=== PATIENT | male | born 1940 | race Caucasian/White ===

== ENCOUNTER → 2016-08-27 | Outpatient (CLI) | payer MEDICARE ==
[~2016-08-27] MED LIST: GLUCTAB18 PO; LISI-725 PO; OMEGCAP2 PO; PRLSR20 PO
[2016-08-27 12:11] LABS: BASO % 1.3 %; BASO ABS # 0.07 K/uL (0-0.2); COMPLETE YES; EOS % 3.1 %; IG% 0.2 %; LYMPH % 33.3 %; LYMPH ABS # 1.85 K/uL (1.2-3.4); MEAN CELL VOLUME 95.7 fL (80-100); MEAN CORPUSCULAR HGB CONC 33.4 g/dl (32-36); MEAN PLATELET VOLUME 9.6 fL (7.4-10.4); MONO % 6.8 %; NEUT % 55.3 %; PLATELET COUNT 188 K/uL (130-400); RED BLOOD COUNT 3.97 M/uL (4.7-6.1); URINE APPEARANCE CLEAR (CLEAR); URINE BILIRUBIN NEG (NEG); URINE COLOR YELLOW; URINE EPITHELIAL CELL AUTO 0-5 /lpf (0-5); URINE NITRITE NEG (NEG); URINE PH 5.5 (4.5-7.5); URINE SPECIFIC GRAVITY 1.013 (1.000-1.030); UROBILINOGEN NEG (NEG); WHITE BLOOD COUNT 5.55 K/uL (4.8-10.8); ZZUR CULT IF INDIC CLEAN CATCH NO
[2016-08-27 12:18] LABS: MANUAL MICROSCOPIC REQUIRED? NO; REVIEW REQ? NO
[2016-08-27 12:20] LABS: BLOOD UREA NITROGEN 21 mg/dl (7-18); BUN/CREATININE RATIO 11.7 (10-20); CARBON DIOXIDE 29 mmol/L (21-32); CHLORIDE 107 mmol/L (98-107); GLUCOSE 89 mg/dl (70-99); MAGNESIUM 1.9 mg/dl (1.8-2.4); PHOSPHORUS 2.3 mg/dl (2.5-4.9); SODIUM 142 mmol/L (136-145)
[2016-08-27 12:26] LABS: CALCIUM 9.6 mg/dl (8.5-10.1)
[2016-08-27 12:36] LABS: URINE PROTIEN/CREAT RATIO 0.1 (0-0.2); URINE TOTAL PROTEIN 5.9 mg/dl (0-11.9)
== END | disposition home or self-care (01) ==
LOC: C.LABBFT 07:49
PROVIDERS: ATTEND Internal Medicine
DX: N18.3 Chronic kidney disease, stage 3 (moderate) (principal)

== ENCOUNTER → 2016-11-18 | Outpatient (CLI) | payer MEDICARE ==
[2016-11-18 12:31] LABS: URIC ACID 5.8 mg/dl (2.6-7.2)
[2016-11-18 12:32] LABS: ESTIMATED AVERAGE GLUCOSE 117 mg/dl; HA1C FLAG Normal (Normal)
== END | disposition home or self-care (01) ==
LOC: C.LABBFT 09:42
PROVIDERS: ATTEND Internal Medicine
DX: E11.65 Type 2 diabetes mellitus with hyperglycemia (principal); M10.9 Gout, unspecified

== ENCOUNTER → 2017-02-02 | Outpatient (CLI) | payer MEDICARE ==
[2017-02-02 17:29] LABS: BASO % 0.7 %; BASO ABS # 0.04 K/uL (0-0.2); COMPLETE YES; EOS % 1.6 %; HEMATOCRIT 35.6 % (42-52); IG% 0.2 %; LYMPH % 25.2 %; LYMPH ABS # 1.54 K/uL (1.2-3.4); MEAN CELL VOLUME 94.4 fL (80-100); MEAN CORPUSCULAR HEMOGLOBIN 31.8 pg (25-34); MEAN CORPUSCULAR HGB CONC 33.7 g/dl (32-36); MEAN PLATELET VOLUME 9.5 fL (7.4-10.4); MONO % 8.7 %; NEUT % 63.6 %; PLATELET COUNT 176 K/uL (130-400); RED BLOOD COUNT 3.77 M/uL (4.7-6.1); WHITE BLOOD COUNT 6.11 K/uL (4.8-10.8)
[2017-02-02 17:40] LABS: URINE APPEARANCE CLEAR (CLEAR); URINE BILIRUBIN NEG (NEG); URINE COLOR YELLOW; URINE EPITHELIAL CELL AUTO 0-5 /lpf (0-5); URINE NITRITE NEG (NEG); URINE PH 5.5 (4.5-7.5); URINE SPECIFIC GRAVITY 1.017 (1.000-1.030); UROBILINOGEN NEG (NEG); ZZUR CULT IF INDIC CLEAN CATCH NO
[2017-02-02 17:43] LABS: BLOOD UREA NITROGEN 33 mg/dl (7-18); BUN/CREATININE RATIO 21.9 (10-20); CALCIUM 9.4 mg/dl (8.5-10.1); CARBON DIOXIDE 30 mmol/L (21-32); CHLORIDE 103 mmol/L (98-107); CREATININE 1.51 mg/dl (0.60-1.40); GLUCOSE 94 mg/dl (70-99); MAGNESIUM 1.8 mg/dl (1.8-2.4); PHOSPHORUS 2.8 mg/dl (2.5-4.9); POTASSIUM 4.1 mmol/L (3.5-5.1); SODIUM 140 mmol/L (136-145)
[2017-02-02 17:57] LABS: URINE PROTIEN/CREAT RATIO 0.1 (0-0.2); URINE TOTAL PROTEIN 7.3 mg/dl (0-11.9)
[2017-02-02 17:59] LABS: MANUAL MICROSCOPIC REQUIRED? NO; REVIEW REQ? NO
== END | disposition home or self-care (01) ==
LOC: C.LABBFT 15:27
PROVIDERS: ATTEND Internal Medicine Nephrology
DX: N18.3 Chronic kidney disease, stage 3 (moderate) (principal)

== ENCOUNTER 2017-04-12 08:14 | Emergency (ER) | payer MEDICARE ==
[~2017-04-12] VITALS: Ht 167.6 cm; Wt 73.3 kg
[2017-04-12 08:18] VITALS: TEMP 36.3; Ht 167.6 cm; Wt 73.3 kg
[2017-04-12] MEDS ORDERED: INDO-24 PO (08:33)
[2017-04-12] MEDS ORDERED: MISCCAP80 PO (08:33)
[2017-04-12] MEDS ORDERED: MULT-506 PO (08:33)
[2017-04-12] MEDS ORDERED: FAMO40TA6 PO (08:33)
[2017-04-12] MEDS ORDERED: HYDR12.55 PO (08:33)
[2017-04-12] MEDS ORDERED: TAMS0.4C38 PO (08:33)
[2017-04-12] MEDS ORDERED: ALLO100T PO (08:33)
[2017-04-12] MEDS ORDERED: BIOFTAB30 PO (08:33)
[2017-04-12] MEDS ORDERED: DILT120C43 PO (08:33)
[2017-04-12 09:01] LABS: BASO % 0.3 %; BASO ABS # 0.03 K/uL (0-0.2); EOS % 0.6 %; EOS ABS # 0.06 K/uL (0-0.5); HEMATOCRIT 36.1 % (42-52); HEMOGLOBIN 12.5 g/dL (14.0-18.0); IG# 0.02 K/uL (0.00-0.02); LYMPH % 19.8 %; LYMPH ABS # 2.07 K/uL (1.2-3.4); MEAN CELL VOLUME 96.5 fL (80-100); MEAN CORPUSCULAR HEMOGLOBIN 33.4 pg (25-34); MEAN CORPUSCULAR HGB CONC 34.6 g/dl (32-36); MEAN PLATELET VOLUME 8.8 fL (7.4-10.4); MONO % 9.4 %; MONO ABS # 0.98 K/uL (0.11-0.59); NEUT % 69.7 %; NEUT ABS # 7.28 K/uL (1.4-6.5); PLATELET COUNT 201 K/uL (130-400); RED CELL DISTRIBUTION WIDTH SD 45.3 fL (36.4-46.3); WHITE BLOOD COUNT 10.44 K/uL (4.8-10.8)
[2017-04-12 09:22] LABS: CALCIUM 9.8 mg/dl (8.5-10.1); CREATININE 1.94 mg/dl (0.60-1.40); POTASSIUM 3.9 mmol/L (3.5-5.1)
[2017-04-12 09:25] LABS: TOTAL PROTEIN 8.1 gm/dl (6.4-8.2)
[2017-04-12] MEDS ORDERED: MULT-1093 PO (09:45)
[2017-04-12] MEDS ORDERED: CALCCAP15 PO (09:45)
[2017-04-12] MEDS ORDERED: HYDR25TA4 PO (09:45)
[2017-04-12] MEDS ORDERED: CHOL1000 PO (09:45)
[2017-04-12] MEDS ORDERED: MoRPHine SULFATE 4 MG/ML 1 ML CARP\\VIAL IV STA (10:03)
[2017-04-12] MEDS ORDERED: SODIUM CHLORIDE 0.9% 500ML 500 ML IV STA (10:03)
[2017-04-12] MEDS ORDERED: ONDANSETRON INJ 2 MG/ML 2 ML VIAL IV STA (10:03)
--- NOTE | 2017-04-12 11:33 | DIAGNOSTIC IMAGING REPORT ---
CT OF THE ABDOMEN AND PELVIS WITHOUT CONTRAST CLINICAL HISTORY: Diffuse left lower abdominal pain. COMPARISON STUDY: Renal ultrasound December 04, 2014. TECHNIQUE: Axial images of the abdomen and pelvis were obtained without IV contrast. Images were reviewed in the axial, sagittal, and coronal planes. A dose lowering technique was utilized adhering to the principles of ALARA. FINDINGS: Mild left opacities within the right middle and right lower lobes are noted. These are age-indeterminate. There is severe left hydronephrosis with moderate right hydronephrosis. The ureters are dilated. The bladder is markedly distended. The prostate is moderately enlarged. There is moderate left perinephric infiltration. No renal, ureteral or bladder calculi are identified. Evaluation of the abdomen and pelvis is suboptimal on this unenhanced exam. The gallbladder surgically absent. This likely accounts for mild dilatation of the common bile duct. There is no pancreatic ductal dilatation is no peripancreatic infiltration. Unenhanced images of the spleen and adrenal glands are unremarkable. There is colonic diverticulosis without evidence for acute diverticulitis. No suspicious osseous lesions are present. IMPRESSION: 1. Marked distention of the bladder. Severe left hydronephrosis and moderate right hydronephrosis which is likely related to bladder outlet obstruction, potentially on the basis of prostate enlargement. Findings discussed with Dr. Cornell at time of dictation. 2. Moderate left perinephric infiltration which is likely related to the obstruction although could be correlated with urinalysis. 3. Colonic diverticulosis without evidence for acute diverticulitis. Electronically signed by: Jeffery Carpio M.D. 04/12/2017 11:31 AM Dictated Date/Time: 04/12/2017 11:23 AM
[2017-04-12] MEDS ORDERED: CEFTRIAXONE SOD INJ 1 GM ADDVIAL IV STA (12:24)
[2017-04-12] MEDS ORDERED: CEPH500C PO (12:40)
[2017-04-12 13:04] VITALS: BP 115/61; PULSE 61; O2SAT 96
--- NOTE | 2017-04-12 13:26 | EMERGENCY ROOM VISIT NOTE ---
History Report prepared by Dion: Kris Wall Under the Supervision of: Dr. Tyree Cornell D.O. First contact with patient: 08:29 Chief Complaint: ABDOMINAL PAIN Stated Complaint: PAIN IN ABDOMEN & BACK History of Present Illness The patient is a 76 year old male who presents to the Emergency Room with complaints of intermittent cramping abdominal pain starting ten days ago that worsens throughout the day. The patient states that his last bowel movement was two days ago, and he had to take a laxative. He additionally states that he is having back pain and a slight runny nose though denies any cough. The patient has a history of a cholecystectomy. Pt denies headache, change in vision, rash, fevers, chest pain, shortness of breath, nausea, vomiting, diarrhea, pain with urination, and melena. Source of History: patient Onset: ten days ago Position: abdomen Quality: cramping Timing: intermittent Associated Symptoms: + back pain, No nausea, No vomiting, No diarrhea, No rash Note: Associated symptoms: Runny nose Review of Systems See HPI for pertinent positives & negatives. A total of 10 systems reviewed and were otherwise negative. Past Medical & Surgical Medical Problems: (1) GERD (gastroesophageal reflux disease) (2) HTN (hypertension) Surgical Problems: (1) History of cholecystectomy Family History Patient reports no known family medical history. Social History Smoking Status: Never Smoker Marital Status: Housing Status: lives with family Occupation Status: retired Current/Historical Medications Scheduled Bioflavonoid Products (Bioflex), 1 TAB PO DAILY Calcium Carbonate-Cholecalcife (Calcium Plus Vitamin D3), 1 CAP PO DAILY Cephalexin Monohydrate (Keflex), 500 MG PO TID Cholecalciferol (Vitamin D3), 1 TAB PO DAILY Diltiazem Hcl Coated Beads (Cartia Xt), 1 CAP PO DAILY Famotidine (Pepcid), 40 MG PO HS Hydrochlorothiazide (Hctz), 25 MG PO DAILY Multiple Vitamins W/ Minerals (Centrum Silver 50+Men), 1 TAB PO DAILY Probiotic Product (Probiotic), 1 CAP PO DAILY Tamsulosin Hcl (Flomax), 1 CAP PO DAILY Allergies Coded Allergies: Flu Virus Vaccine (Unverified Adverse Reaction, Unknown, "IT GAVE ME THE FLU", 04/12/17) Physical Exam Vital Signs Date Time Temp Pulse Resp B/P (MAP) Pulse Ox O2 Delivery O2 Flow Rate FiO2 04/12/17 13:04 61 18 115/61 96 Room Air 04/12/17 11:47 66 18 126/62 98 Room Air 04/12/17 10:33 67 20 138/73 100 04/12/17 08:18 36.3 65 20 115/65 100 Room Air Physical Exam GENERAL: Sitting up in bed, no distress, non-toxic EYE EXAM: normal conjunctiva. OROPHARYNX: no exudate, no erythema, lips, buccal mucosa, and tongue normal and mucous membranes are moist NECK: supple, no nuchal rigidity, no adenopathy, non-tender LUNGS: Clear to auscultation. Normal chest wall mechanics HEART: no murmurs, S1 normal and S2 normal ABDOMEN: Minimal tenderness in the left abdomen. Abdomen soft, normo-active bowel sounds, no masses, no rebound or guarding. BACK: Back is symmetrical on inspection and there is no deformity, no midline tenderness, no CVA tenderness. SKIN: no rashes and no bruising UPPER EXTREMITIES: upper extremities are grossly normal. LOWER EXTREMITIES: No pitting edema. NEURO EXAM: Normal sensorium, cranial nerves II-XII grossly intact, normal speech, no gross weakness of arms, no gross weakness of legs. Gross sensation intact. BEDSIDE US: Shows an enlarged bladder. Medical Decision & Procedures ER Provider Diagnostic Interpretation: Radiology results as stated below per my review and the radiologist's interpretation: CT OF THE ABDOMEN AND PELVIS WITHOUT CONTRAST CLINICAL HISTORY: Diffuse left lower abdominal pain. COMPARISON STUDY: Renal ultrasound December 04, 2014. TECHNIQUE: Axial images of the abdomen and pelvis were obtained without IV contrast. Images were reviewed in the axial, sagittal, and coronal planes. A dose lowering technique was utilized adhering to the principles of ALARA. FINDINGS: Mild left opacities within the right middle and right lower lobes are noted. These are age-indeterminate. There is severe left hydronephrosis with moderate right hydronephrosis. The ureters are dilated. The bladder is markedly distended. The prostate is moderately enlarged. There is moderate left perinephric infiltration. No renal, ureteral or bladder calculi are identified. Evaluation of the abdomen and pelvis is suboptimal on this unenhanced exam. The gallbladder surgically absent. This likely accounts for mild dilatation of the common bile duct. There is no pancreatic ductal dilatation is no peripancreatic infiltration. Unenhanced images of the spleen and adrenal glands are unremarkable. There is colonic diverticulosis without evidence for acute diverticulitis. No suspicious osseous lesions are present. IMPRESSION: 1. Marked distention of the bladder. Severe left hydronephrosis and moderate right hydronephrosis which is likely related to bladder outlet obstruction, potentially on the basis of prostate enlargement. Findings discussed with Dr. Cornell at time of dictation. 2. Moderate left perinephric infiltration which is likely related to the obstruction although could be correlated with urinalysis. 3. Colonic diverticulosis without evidence for acute diverticulitis. Electronically signed by: Jeffery Carpio M.D. 04/12/2017 11:31 AM Dictated Date/Time: 04/12/2017 11:23 AM Laboratory Results 04/12/17 08:48 Red Blood Count 3.74, Mean Corpuscular Volume 96.5, Mean Corpuscular Hemoglobin 33.4, Mean Corpuscular Hemoglobin Concent 34.6, Mean Platelet Volume 8.8, Neutrophils (%) (Auto) 69.7, Lymphocytes (%) (Auto) 19.8, Monocytes (%) (Auto) 9.4, Eosinophils (%) (Auto) 0.6, Basophils (%) (Auto) 0.3, Neutrophils # (Auto) 7.28, Lymphocytes # (Auto) 2.07, Monocytes # (Auto) 0.98, Eosinophils # (Auto) 0.06, Basophils # (Auto) 0.03 04/12/17 08:48 Test 04/12/17 08:48 04/12/17 11:20 White Blood Count 10.44 K/uL (4.8-10.8) Red Blood Count 3.74 M/uL (4.7-6.1) Hemoglobin 12.5 g/dL (14.0-18.0) Hematocrit 36.1 % (42-52) Mean Corpuscular Volume 96.5 fL (80-100) Mean Corpuscular Hemoglobin 33.4 pg (25-34) Mean Corpuscular Hemoglobin Concent 34.6 g/dl (32-36) Platelet Count 201 K/uL (130-400) Mean Platelet Volume 8.8 fL (7.4-10.4) Neutrophils (%) (Auto) 69.7 % Lymphocytes (%) (Auto) 19.8 % Monocytes (%) (Auto) 9.4 % Eosinophils (%) (Auto) 0.6 % Basophils (%) (Auto) 0.3 % Neutrophils # (Auto) 7.28 K/uL (1.4-6.5) Lymphocytes # (Auto) 2.07 K/uL (1.2-3.4) Monocytes # (Auto) 0.98 K/uL (0.11-0.59) Eosinophils # (Auto) 0.06 K/uL (0-0.5) Basophils # (Auto) 0.03 K/uL (0-0.2) RDW Standard Deviation 45.3 fL (36.4-46.3) RDW Coefficient of Variation 13.0 % (11.5-14.5) Immature Granulocyte % (Auto) 0.2 % Immature Granulocyte # (Auto) 0.02 K/uL (0.00-0.02) Anion Gap 3.0 mmol/L (3-11) Est Creatinine Clear Calc Drug Dose 29.2 ml/min Estimated GFR () 37.9 Estimated GFR (Non- 32.7 BUN/Creatinine Ratio 12.3 (10-20) Calcium Level 9.8 mg/dl (8.5-10.1) Total Bilirubin 0.6 mg/dl (0.2-1) Direct Bilirubin 0.2 mg/dl (0-0.2) Aspartate Amino Transf (AST/SGOT) 16 U/L (15-37) Alanine Aminotransferase (ALT/SGPT) 25 U/L (12-78) Alkaline Phosphatase 104 U/L (45-117) Total Protein 8.1 gm/dl (6.4-8.2) Albumin 4.0 gm/dl (3.4-5.0) Lipase 112 U/L (73-393) Urine Color YELLOW Urine Appearance CLEAR (CLEAR) Urine pH 6.0 (4.5-7.5) Urine Specific [place] 1.017 (1.000-1.030) Urine Protein NEG (NEG) Urine Glucose (UA) NEG (NEG) Urine Ketones NEG (NEG) Urine Occult Blood 1+ (NEG) Urine Nitrite NEG (NEG) Urine Bilirubin NEG (NEG) Urine Urobilinogen NEG (NEG) Urine Leukocyte Esterase SMALL (NEG) Urine WBC (Auto) 5-10 /hpf (0-5) Urine RBC (Auto) 5-10 /hpf (0-4) Urine Hyaline Casts (Auto) 1-5 /lpf (0-5) Urine Epithelial Cells (Auto) 5-10 /lpf (0-5) Urine Bacteria (Auto) NEG (NEG) Laboratory results per my review. Medications Administered Medications (Trade) Dose Ordered Sig/Rochelle Route Start Time Stop Time Status Last Admin Dose Admin Morphine Sulfate (MoRPHine SULFATE INJ) 4 mg NOW STAT IV 04/12/17 10:03 04/12/17 10:04 DC 04/12/17 10:16 4 MG Ondansetron HCl (Zofran Inj) 4 mg NOW STAT IV 04/12/17 10:03 04/12/17 10:04 DC 04/12/17 10:15 4 MG Sodium Chloride 500 ml @ 999 mls/hr Q31M STAT IV 04/12/17 10:03 04/12/17 10:33 DC 04/12/17 10:15 999 MLS/HR Ceftriaxone Sodium (Rocephin Inj) 1 gm NOW STAT IV 04/12/17 12:24 04/12/17 12:25 DC 04/12/17 13:03 1 GM ED Course ED COURSE: Vital signs were reviewed and showed normal vitals The patients medical record was reviewed The above diagnostic studies were performed and reviewed. ED treatments and interventions as stated above. 0829: The patient was evaluated in room A3. A complete history and physical examination was performed. 1003: Sodium Chloride 500 ml @ 999 mls/hr IV, Zofran 4mg IV, Morphine Sulfate 4mg IV 1108: Bedside ultrasound revealed an extremely distended bladder. I updated them on the treatment plan. 1124: I reevaluated the patient, and he is doing well. 1139: On reassessment, the patient is feeling better 1220: Upon reevaluation, the patient is having complete resolution of symptoms.I discussed my findings with the patient and he understands and agrees with the treatment plan. Based on the patients age, coexisting illnesses, exam and lab findings the decision to treat as an outpatient was made. The patient remained stable while under my care. The patient appeared well at the time of discharge. 1224: Rocephin 1gm IV Medical Decision Differential diagnoses includes but is not limited to gastritis, peptic ulcer disease, GERD, gallbladder disease, pancreatitis, small bowel obstruction, acute coronary syndrome, pericarditis, ischemic bowel, irritable bowel disease, irritable bowel syndrome, appendicitis, diverticulitis, malignancy, hernia, urinary tract infection, torsion, perforation, trauma, infectious. Patient is a 76-year-old male who presents to ER for diffuse abdominal pain which is worsening over the past 10 days. He does have urinary complaints as well. He also complains of back pain which has been intermittently present during the same duration. Labs were obtained including CBC was unremarkable. BMP shows creatinine 1.9 with previous creatinines around 1.8. Bilirubin all LFTs and lipase is normal. UA has small leukocytes and white cells with 10 epithelial cells. No bacteria. No nitrates. CT did show some mild stranding around the kidney where Goff was present. This could be related after discussion with radiologist infection versus Goff. Based on his UA and symptoms as we drained 2.5 L from his bladder and had complete resolution of his symptoms I favor this is secondary to urinary retention. I did cover him with a dose of IV Rocephin. He was discharged with follow-up to urology. He' ll follow up with his PCP as well. He was placed on outpatient antibiotic. Previous urine cultures were nonexistent. Patient family was updated bedside and was discharged follow-up with outpatient. Discussed with Pt concerning signs and symptoms to watch out for. Pt was instructed to follow up with their PCP and discussed with the patient their option to return to the ED at anytime for persistent or worsening symptoms. The appropriate anticipatory guidance and out-patient management, including indications for return to the emergency department, were explained at length to the patient and understood. Medication Reconcilliation Current Medication List: was personally reviewed by me Blood Pressure Screening Patient's blood pressure: Normal blood pressure Impression Primary Impression: Urinary retention Additional Impression: CKD (chronic kidney disease) Scribe Attestation The scribe's documentation has been prepared under my direction and personally reviewed by me in its entirety. I confirm that the note above accurately reflects all work, treatment, procedures, and medical decision making performed by me. Departure Information Dispostion Home / Self-Care Prescriptions Cephalexin Monohydrate (Keflex) 500 Mg Cap 500 MG PO TID for 7 Days, CAP Prov: Tyree Cornell, DO 04/12/17 Referrals Bill Kaplan M.D. (PCP) Forms Call Back Authorization, HOME CARE DOCUMENTATION FORM, IMPORTANT VISIT INFORMATION Patient Instructions ED Catheter Care [place], ED Retention Urinary Male, My [facility] Additional Instructions Please follow up with your primary care doctor with in the next 24 hours. Any worsening of your symptoms, please return to the ED immediately. This includes any fevers greater than 100.4, worsening pain, chest pain, shortness breath, persistent nausea, vomiting, unable to eat or drink, or any other concerning signs or symptoms from your standpoint. Please take antibiotics as prescribed. If the [place] catheter stopped draining and he started to have pain he needs to return immediately to the ER. Please follow up with urology within the next week. Problem Qualifiers Additional Impression: CKD (chronic kidney disease) Chronic kidney disease stage: unspecified stage Qualified Codes: N18.9 - Chronic kidney disease, unspecified
== END 2017-04-12 13:29 | disposition home or self-care (01) ==
LOC: C.EDB 08:15 → C.EDA 13:29
DX: R33.9 Retention of urine, unspecified (principal); N18.9 Chronic kidney disease, unspecified; I12.9 Hypertensive chronic kidney disease with stage 1 through stage 4 chronic kidney disease, or unspecified chronic kidney disease; K21.9 Gastro-esophageal reflux disease without esophagitis; Z90.49 Acquired absence of other specified parts of digestive tract; Z79.899 Other long term (current) drug therapy

== ENCOUNTER → 2017-04-17 | Outpatient (CLI) | payer MEDICARE ==
[~2017-04-17] MED LIST changes: +BIOFTAB30 PO; +CALCCAP15 PO; +CEPH500C PO; +CHOL1000 PO; +DILT120C43 PO; +FAMO40TA6 PO; -GLUCTAB18 PO; +HYDR25TA4 PO; -LISI-725 PO; +MISCCAP80 PO; +MULT-1093 PO; -OMEGCAP2 PO; -PRLSR20 PO; +TAMS0.4C38 PO
== END | disposition home or self-care (01) ==
LOC: C.LAB1850 09:21
PROVIDERS: ATTEND Urology
DX: N40.1 Benign prostatic hyperplasia with lower urinary tract symptoms (principal); R31.0 Gross hematuria

== ENCOUNTER → 2017-04-22 | Outpatient (CLI) | payer MEDICARE ==
[~2017-04-22] MED LIST changes: -CEPH500C PO
== END | disposition home or self-care (01) ==
LOC: C.LABSPEC 16:57
PROVIDERS: ATTEND Urology
DX: R33.9 Retention of urine, unspecified (principal)

== ENCOUNTER → 2017-07-02 | Outpatient (CLI) | payer MEDICARE ==
[2017-07-02 12:52] LABS: URIC ACID 4.8 mg/dl (2.6-7.2)
[2017-07-02 13:31] LABS: HEMOGLOBIN A1C 5.7 % (4.5-5.6)
== END | disposition home or self-care (01) ==
LOC: C.LABBFT 07:34
PROVIDERS: ATTEND Internal Medicine
DX: E11.65 Type 2 diabetes mellitus with hyperglycemia (principal); M10.9 Gout, unspecified

== ENCOUNTER → 2017-07-29 | Day surgery (SDC) | payer MEDICARE ==
[2017-07-23 09:25] VITALS: Ht 167.6 cm; Wt 69.5 kg
[~2017-07-29] VITALS: Ht 167.6 cm; Wt 69.5 kg
[~2017-07-29] MED LIST changes: +ALLO100T PO; +FINA5TAB PO; +FLUO0.059; +LIDOCAINE HCL 2% 2 ML VIAL (20MG/ML) ONE; +PROPOFOL IV EMULSION 10 MG/ML 20 ML VIAL IV ONE; +SODIUM CHLORIDE 0.9% 500ML 500 ML IV ONE
--- NOTE | 2017-07-29 09:07 | Endo History and Physical ---
History & Physical Date of Service: Jul 29, 2017. Chief Complaint: History of colon polyps Referring Physician: Dr. Kaplan History of Present Illness 76 yo CM who presents for colonoscopy secondary to history of colon polyps. Past Surgical History Hx Cardiac Surgery: No Hx Internal Defibrillator: No Hx Pacemaker: No Hx Abdominal Surgery: Yes (HERNIA REPAIR (10 YEARS AGO), MAY) Hx of Implantable Prosthesis: No Hx Post-Op Nausea and Vomiting: No Hx Cancer Surgery: No Hx Thoracic Surgery: No Hx Orthopedic: Yes (RIGHT RCR) Hx Urinary Tract Surgery: No Family History None Social History Smoking Status: Never Smoker Hx Substance Use: No Hx Alcohol Use: No Allergies Coded Allergies: Flu Virus Vaccine (Unverified Adverse Reaction, Unknown, "IT GAVE ME THE FLU", 07/23/17) Current Medications Reported Home Medications Medications Dose Route/Sig Max Daily Dose Days Date Category Fluocinonide 0.05 % Gel 07/23/17 Reported Proscar (Finasteride) 5 Mg Tab 5 Mg PO DAILY 07/23/17 Reported Zyloprim (Allopurinol) 100 Mg Tab 1 Tab PO DAILY 30 07/23/17 Reported Hctz (Hydrochlorothiazide) 25 Mg Tab 25 Mg PO DAILY 04/12/17 Reported Calcium Plus Vitamin D3 (Calcium Carbonate-Cholecalcife) 1 Cap Cap 1 Cap PO DAILY 04/12/17 Reported Vitamin D3 (Cholecalciferol) 1,000 Unit Tab 1 Tab PO DAILY 04/12/17 Reported Centrum Silver 50+Men (Multiple Vitamins W/ Minerals) 1 Tab Tab 1 Tab PO DAILY 04/12/17 Reported Flomax (Tamsulosin Hcl) 0.4 Mg Cap 1 Cap PO DAILY 04/12/17 Reported Probiotic (Probiotic Product) 1 Cap Cap 1 Cap PO DAILY 04/12/17 Reported Pepcid (Famotidine) 40 Mg Tab 40 Mg PO HS 04/12/17 Reported Cartia Xt (Diltiazem Hcl Coated Beads) 120 Mg Cap 1 Cap PO DAILY 04/12/17 Reported Bioflex (Bioflavonoid Products) 1 Tab Tab 2 Tab PO DAILY 04/12/17 Reported Vital Signs Weight (Kilograms): 69.55 Height (Feet): 5 Height (Inches): 6 Physical Exam General Appearance: WD/WN, no apparent distress Respiratory/Chest: Auscultation: breath sounds normal Cardiovascular: Heart Auscultation: RRR Abdomen: Bowel Sounds: normal Inspection & Palpation: soft, non-distended, no tenderness, guarding & rebound Assessment and Plan Assessment: 76 yo CM who presents for colonoscopy secondary to history of colon polyps. Plan: Proceed with colonoscopy.
--- NOTE | 2017-07-29 09:43 | GI REPORT ---
Patient Name: Codey Burns Procedure Date: 07/29/2017 9:20 AM Date of : 1940 Admit Type: Outpatient Age: 76 Gender: Male Attending MD: Prasad Cross DO Procedure: Colonoscopy Providers: Prasad Cross DO Referring MD: Bill Kaplan Indications: High risk colon cancer surveillance: Personal history of colonic polyps Medicines: Monitored Anesthesia Care Complications: No immediate complications. Estimated Blood Loss: Estimated blood loss: none. Procedure: Pre-Anesthesia Assessment: - Prior to the procedure, a History and Physical was performed, and patient medications and allergies were reviewed. The patient's tolerance of previous anesthesia was also reviewed. The risks and benefits of the procedure and the sedation options and risks were discussed with the patient. All questions were answered, and informed consent was obtained. Prior Anticoagulants: The patient has taken no previous anticoagulant or antiplatelet agents. ASA Grade Assessment: II - A patient with mild systemic disease. After reviewing the risks and benefits, the patient was deemed in satisfactory condition to undergo the procedure. After I obtained informed consent, the scope was passed under direct vision. Throughout the procedure, the patient's blood pressure, pulse, and oxygen saturations were monitored continuously. The scope was introduced through the anus and advanced to the cecum, identified by appendiceal orifice and ileocecal valve. The colonoscopy was performed without difficulty. The patient tolerated the procedure well. The quality of the bowel preparation was good. The ileocecal valve, appendiceal orifice, and rectum were photographed. Findings: The perianal and digital rectal examinations were normal. Scattered small and large-mouthed diverticula were found in the entire colon. Non-bleeding internal hemorrhoids were found during retroflexion. The hemorrhoids were small. Impression: - Diverticulosis in the entire examined colon. - Non-bleeding internal hemorrhoids. - No specimens collected. Recommendation: - Resume previous diet. - Continue present medications. - Repeat colonoscopy in 5 years for surveillance. - Return to primary care physician as previously scheduled. Prasad Cross DO 07/29/2017 9:42:48 AM This report has been signed electronically. Note Initiated On: 07/29/2017 9:20 AM Number of Addenda: 0 I attest to the content of the Intraoperative Record and orders documented therein, exceptions below {[id number]}
--- NOTE | 2017-07-29 09:49 | Discharge Instructions ---
Endoscopy Patient Instructions Date / Procedure(s) Performed Jul 29, 2017. Colonoscopy Allergy Information Coded Allergies: Flu Virus Vaccine (Unverified Adverse Reaction, Unknown, "IT GAVE ME THE FLU", 07/23/17) Discharge Date / Findings Jul 29, 2017. Diverticulosis Internal hemorrhoids Medication Instructions OK to resume all medications today as prescribed Reported Home Medications Medications Dose Route/Sig Max Daily Dose Days Date Category Fluocinonide 0.05 % Gel 07/23/17 Reported Proscar (Finasteride) 5 Mg Tab 5 Mg PO DAILY 07/23/17 Reported Zyloprim (Allopurinol) 100 Mg Tab 1 Tab PO DAILY 30 07/23/17 Reported Hctz (Hydrochlorothiazide) 25 Mg Tab 25 Mg PO DAILY 04/12/17 Reported Calcium Plus Vitamin D3 (Calcium Carbonate-Cholecalcife) 1 Cap Cap 1 Cap PO DAILY 04/12/17 Reported Vitamin D3 (Cholecalciferol) 1,000 Unit Tab 1 Tab PO DAILY 04/12/17 Reported Centrum Silver 50+Men (Multiple Vitamins W/ Minerals) 1 Tab Tab 1 Tab PO DAILY 04/12/17 Reported Flomax (Tamsulosin Hcl) 0.4 Mg Cap 1 Cap PO DAILY 04/12/17 Reported Probiotic (Probiotic Product) 1 Cap Cap 1 Cap PO DAILY 04/12/17 Reported Pepcid (Famotidine) 40 Mg Tab 40 Mg PO HS 04/12/17 Reported Cartia Xt (Diltiazem Hcl Coated Beads) 120 Mg Cap 1 Cap PO DAILY 04/12/17 Reported Bioflex (Bioflavonoid Products) 1 Tab Tab 2 Tab PO DAILY 04/12/17 Reported Provider Instructions Activity Restrictions - No exercising or heavy lifting for 24 hours. - Do not drink alcohol the day of the procedure. - Do not drive a car or operate machinery until the day after the procedure. - Do not make any important decisions or sign important papers in 24 hours after the procedure. Following Day: - Return to full activity which may include returning to work/school. Diet Start your diet with liquids and light foods (jello, soup, juice, toast). Then eat your usual diet if not nauseated. Treatment For Common After Affects For mild abdominal pain, bloating, or excessive gas: - Rest - Eat lightly - Lie on right side Follow-Up Information Follow-up with DR. TALAMANTES as scheduled Anesthesia Information What You Should Know You have had a procedure that required some medicine to reduce anxiety and discomfort. This treatment is called moderate sedation. After receiving the treatment, you may be sleepy, but you will be able to breathe on your own. The effects of the treatment may last for several hours. Follow these instructions along with Activity/Diet recommendations noted above: * Do NOT do anything where dizziness or clumsiness would be dangerous. * Rest quietly at home today, then you can be up and about tomorrow. * Have a responsible person stay with you the rest of today. * You may have had an I.V. today. If so, you may take the dressing off later today. Recommendations Call your doctor if: * Trouble breathing * Continuous vomiting for more than 24 hours * Temperature above 101 degrees * Severe abdominal pain or bloating * Pain not relieved by pain medicine ordered * There is increased drainage or redness from any incision * A large amount of rectal bleeding greater than 2-3 tablespoons. (If you had a polyp/s removed or have hemorrhoids, a small amount of blood - from the rectum is to be expected.) * You have any unanswered questions or concerns. IN THE EVENT OF A SERIOUS EMERGENCY, GO TO THE NEAREST EMERGENCY ROOM Your discharge instructions were prepared by provider Prasad Cross. Patient Instructions Signature Page Codey Burns Patient (or Guardian) Signature/Date: I have read and understand the instructions given to me by my caregivers. Caregiver/RN/Doctor Signature/Date: The above-named patient and/or guardian has received patient instructions on this date. + Original Patient Signature Page (only) stays with chart. Please make copy for patient.
[2017-07-29 10:05] VITALS: BP 121/62; PULSE 51; O2SAT 99
--- NOTE | 2017-07-29 10:39 | Anesthesiology Progress Note ---
Anesthesia Post Op Note Date & Time Jul 29, 2017 at 10:39 Vital Signs Pain Intensity: 0 Vital Signs Past 12 Hours Date Time Temp Pulse Resp B/P (MAP) Pulse Ox O2 Delivery O2 Flow Rate FiO2 07/29/17 10:05 51 16 121/62 (81) 99 Room Air 07/29/17 09:55 49 16 123/64 (83) 99 Room Air 07/29/17 09:45 51 16 117/61 (79) 99 Room Air 07/29/17 09:11 36.4 50 16 131/50 (77) 100 Room Air Notes Mental Status: alert / awake / arousable, participated in evaluation Pt Amnestic to Procedure: Yes Nausea / Vomiting: adequately controlled Pain: adequately controlled Airway Patency, RR, SpO2: stable & adequate BP & HR: stable & adequate Hydration State: stable & adequate Anesthetic Complications: no major complications apparent
== END | disposition home or self-care (01) ==
LOC: C.GI 08:08
PROVIDERS: ATTEND Internal Medicine
DX: Z12.11 Encounter for screening for malignant neoplasm of colon (principal); K57.30 Diverticulosis of large intestine without perforation or abscess without bleeding; K64.8 Other hemorrhoids; Z86.010 Personal history of colon polyps; Z88.7 Allergy status to serum and vaccine

== ENCOUNTER → 2017-07-30 | Outpatient (CLI) | payer MEDICARE ==
[~2017-07-30] MED LIST changes: -LIDOCAINE HCL 2% 2 ML VIAL (20MG/ML) ONE; -PROPOFOL IV EMULSION 10 MG/ML 20 ML VIAL IV ONE; -SODIUM CHLORIDE 0.9% 500ML 500 ML IV ONE
[2017-07-30 12:55] LABS: BASO % 1.3 %; BASO ABS # 0.06 K/uL (0-0.2); EOS ABS # 0.14 K/uL (0-0.5); HEMATOCRIT 35.4 % (42-52); HEMOGLOBIN 11.8 g/dL (14.0-18.0); IG# 0.01 K/uL (0.00-0.02); LYMPH % 34.2 %; LYMPH ABS # 1.61 K/uL (1.2-3.4); MEAN CELL VOLUME 95.7 fL (80-100); MEAN CORPUSCULAR HEMOGLOBIN 31.9 pg (25-34); MEAN CORPUSCULAR HGB CONC 33.3 g/dl (32-36); MEAN PLATELET VOLUME 9.5 fL (7.4-10.4); MONO % 5.3 %; MONO ABS # 0.25 K/uL (0.11-0.59); NEUT ABS # 2.64 K/uL (1.4-6.5); PLATELET COUNT 150 K/uL (130-400); RED CELL DISTRIBUTION WIDTH CV 13.8 % (11.5-14.5); RED CELL DISTRIBUTION WIDTH SD 47.7 fL (36.4-46.3); WHITE BLOOD COUNT 4.71 K/uL (4.8-10.8)
[2017-07-30 14:02] LABS: ALBUMIN 3.8 gm/dl (3.4-5.0); BLOOD UREA NITROGEN 28 mg/dl (7-18); CALCIUM 8.7 mg/dl (8.5-10.1); CARBON DIOXIDE 30 mmol/L (21-32); CREATININE 1.66 mg/dl (0.60-1.40); GLUCOSE 185 mg/dl (70-99); POTASSIUM 4.3 mmol/L (3.5-5.1); SODIUM 141 mmol/L (136-145)
[2017-07-30 14:04] LABS: PHOSPHORUS 1.9 mg/dl (2.5-4.9)
== END | disposition home or self-care (01) ==
LOC: C.LABBFT 07:54
PROVIDERS: ATTEND Internal Medicine Nephrology
DX: N18.3 Chronic kidney disease, stage 3 (moderate) (principal)